=== PATIENT | female | born 1990 | race Caucasian/White ===

== ENCOUNTER 2017-07-11 01:15 | Inpatient (IN) | payer MEDICARE, MEDICAID ==
[~2017-07-11] VITALS: Ht 149.9 cm; Wt 42.2 kg
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
--- NOTE | 2017-07-11 01:30 | NUR ---
LAB TA BEDSIDE
--- NOTE | 2017-07-11 01:42 | NUR ---
XRAY AT BEDSIDE
[2017-07-11 01:47] LABS: BASOPHILS % (AUTO) 0.3 % (0.0-2.0); EOSINOPHILS # (AUTO) 0.2 /CMM (0.0-0.7); HEMATOCRIT 22 % (33-45); HEMOGLOBIN 7.5 g/dL (11.5-14.8); LYMPHOCYTES % (AUTO) 19.7 % (20.0-44.0); MEAN CORPUSCULAR HEMOGLOBIN 31 PG (26.0-33.0); MEAN CORPUSCULAR HGB CONC 34 g/dl (31.0-36.0); MEAN CORPUSCULAR VOLUME 91 fL (82-100); MONOCYTES % (AUTO) 9.7 % (2.0-12.0); NEUTROPHILS # (AUTO) 6.9 /CMM (1.8-8.9); NEUTROPHILS % (AUTO) 68.3 % (43.0-81.0); PLATELET COUNT (AUTO) 453 /CMM (150-450); RDW COEFFICIENT OF VARIATION 16.3 (11.5-15.0); RED BLOOD CELL COUNT(AUTO) 2.44 MIL/uL (4.0-5.2); WHITE BLOOD COUNT (AUTO) 10.1 K/uL (4.3-11.0)
[2017-07-11 01:58] LABS: CALCIUM, SERUM 11.5 mg/dL (8.5-10.1); CARBON DIOXIDE 29 mmol/L (21-32); CHLORIDE 103 mmol/L (98-107); CREATININE 1.4 mg/dL (0.6-1.3); GLUCOSE 108 mg/dL (74-106); SODIUM SERUM 141 mmol/L (136-145); UREA NITROGEN, BLOOD 19 mg/dL (7-18)
[2017-07-11 02:03] LABS: ACETAMINOPHEN 3 ug/ml (10-30); ALANINE AMINOTRANSFERASE 15 U/L (12-78); ALBUMIN 2.5 g/dL (3.4-5.0); ALKALINE PHOSPHATASE 93 U/L (46-116); ASPARTATE AMINOTRANSFERASE 27 U/L (15-37); BILIRUBIN,DIRECT 0.1 mg/dL (0.0-0.2); BILIRUBIN,TOTAL 0.2 mg/dL (0.2-1.0); TOTAL PROTEIN, SERUM 7.9 g/dL (6.4-8.2)
[2017-07-11 02:05] LABS: SALICYLATE 1.4 mg/dL (2.8-20.0)
[2017-07-11 02:06] LABS: APPEARANCE,URINE CLEAR (CLEAR); BILIRUBIN,URINE NEGATIVE (NEGATIVE); BLOOD, URINE NEGATIVE Ery/uL (NEGATIVE); COLOR,URINE YELLOW (YELLOW); KETONES,URINE NEGATIVE (NEGATIVE); LEUKOCYTE ESTERASE ,URINE NEGATIVE (NEGATIVE); NITRITE, URINE NEGATIVE (NEGATIVE); PROTEIN,URINE NEGATIVE (NEGATIVE); UGLUCOSE NEGATIVE (NEGATIVE); UROBILINOGEN,URINE 0.2 EU/dL (0.2)
[2017-07-11 02:06] LABS: ALCOHOL, BLOOD < 3 mg/dL (0-0)
[2017-07-11] MEDS ORDERED: TYL2T PO (02:39)
[2017-07-11] MEDS ORDERED: PROP20TA7 PO (02:39)
[2017-07-11] MEDS ORDERED: HYDR-548 PO (02:39)
[2017-07-11] MEDS ORDERED: POTA10CA43 PO (02:39)
[2017-07-11] MEDS ORDERED: LACT10SO PO (02:39)
[2017-07-11] MEDS ORDERED: VALP250C3 PO (02:39)
[2017-07-11] MEDS ORDERED: TAMO20TA4 PO (02:39)
[2017-07-11] MEDS ORDERED: FERR325T23 PO (02:39)
[2017-07-11] MEDS ORDERED: ONDA4TAB8 PO (02:39)
[2017-07-11] MEDS ORDERED: IV NS 0.9% 1,000 ML BAG IV ONE (03:00)
--- NOTE | 2017-07-11 03:28 | NUR ---
REPORT GIVEN TO IVA
--- NOTE | 2017-07-11 03:37 | NUR ---
RECEIVED NEW ADMISSION FROM ER, ALERT AND ORIENTED X3, ANXIOUS, REPEATEDLY SAYING "I WANT PAIN MEDICATION, I'M IN PAIN.", NO SOB, TOLERATING ROOM AIR, SP02 97%, COMPLAINING OF 10/10 PAIN TO LOWER BACK. HAS HX OF VERTEBRAL WEDGE COMPRESSION. ABDOMEN SOFT AND NON-TENDER, ACTIVE BOWEL SOUNDS, HAS BILATERAL BREAST IMPLANTS, WITH HX OF NEOPLASTIC BREAST CANCER. LEFT ARM PERIPHERAL LINE IS PATENT AND SECURED WITH DRESSING. HAS UNCONTROLLABLE TREMORS WHEN UPSET. TREMORS STOPPED WHEN PATIENT CALMED DOWN, ABLE TO ANSWER QUESTIONS REGARDING HEALTH HISTORY. UNSTEADY GAIT, ABLE TO AMBULATE TO THE TOILET. ORIENTED TO ROOM AND USE OF CALL LIGHT, KEPT COMFORTABLE, PROVIDED WARM BLANKET, CALL LIGHT WITHIN REACH.
--- NOTE | 2017-07-11 03:45 | NUR ---
NOTIFIED DR. HINSON OF ADMISSION, AWAITING ORDERS.
[2017-07-11 03:47] VITALS: BP 108/51
--- NOTE | 2017-07-11 04:00 | NUR ---
RN NOTE; ADMITTED A 26 Y/O, F , A , OX4. ANXIOUS, BREATHING EVENLY. NO SOB., NAD . SKIN WARM AND DRY. AFEBRILE. W/ C/O LOWER BACK PAIN. NEEDS ATTENDED. DR. HINSON MADE AWARE. CALL LIGHT WITHIN REACH . WILL CONT TO MONITOR AND WILL F/U W/ ORDERS.
[2017-07-11] MEDS ORDERED: Z GUARD REMEDY 2 OZ OINT TP PRN (06:30)
[2017-07-11] MEDS ORDERED: MAG HYDROX/AL HYDROX/SIMETH 30 ML UDC PO PRN (06:30)
[2017-07-11] MEDS ORDERED: ZOLPIDEM TARTRATE 5 MG TABLET PO PRN (06:30)
[2017-07-11] MEDS ORDERED: ONDANSETRON HCL/PF 4 MG/2 ML VIAL IVP PRN (06:30)
[2017-07-11] MEDS ORDERED: MAGNESIUM HYDROXIDE 30 ML UDC PO PRN (06:30)
--- NOTE | 2017-07-11 06:32 | NUR ---
PT IN BED SLEEPING. AROUSES EASILY. W/ EPISODES OF ANXIETY AND SCREAMING, NO C/O PAIN OR DISCOMFORT AT THIS TIME. NEEDS ATTENDED . BED LOW LOCKED .CALL LIGHT WITHIN REACH,. WILL CONT TO MONITOR AND WILL ENDORSE TO AM SHIFT FOR CLYDE.
--- NOTE | 2017-07-11 07:47 | NUR ---
RN INITIAL NOTES RECEIVED PT LAYING IN BED WITH HOB ELEVATED. PT IS AWAKE AND RESPONSIVE. RESPIRATIONS ARE EVEN AND UNLABORED, NOT IN ANY ACUTE DISTRESS NOTED. PERIPHERAL IV TO LEFT ARM, PATENT. DRESSING KEPT CLEAN AND DRY. PT ABLE TO MOVE AROUND IN BED WITH SUPERVISION. WILL CONTINUE TO MONITOR THROUGHOUT SHIFT AND RENDER NEEDS.
[2017-07-11 08:00] VITALS: BP 126/81
[2017-07-11] MEDS: PANTOPRAZOLE 40 MG TABLET.DR PO SCH (08:38)
[2017-07-11] MEDS: HYDROCODONE/APAP 5/325MG 1 EACH TABLET PO PRN ×3 (08:38→18:19)
[2017-07-11 09:35] VITALS: BP 126/81
--- NOTE | 2017-07-11 10:16 | NUR ---
RN NOTES PT TRANSFERRED FROM OR TO [facility]. ALL BELONGINGS WERE TAKEN TO PT'S ROOM IN 104, NURSE DENZEL MADE AWARE. Addendum: 07/11/17 at 1018 by BOB GARCIA RN INCORRECT CHART. THIS PT IS IN STABLE CONDITION AND CURRENTLY IN RM 201 MED/SURG 2
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
[2017-07-11] MEDS ORDERED: clonazePAM 1 MG TABLET PO PRN (12:00)
[2017-07-11] MEDS: DIVALPROEX SODIUM 500 MG TABLET.DR PO SCH ×4 (13:40→20:25)
[2017-07-11] MEDS: OLANZAPINE 5 MG/TAB.RAPDIS PO SCH ×2 (13:41→20:21)
[2017-07-11] MEDS: ACETAMINOPHEN 325 MG TABLET PO PRN (15:52)
[2017-07-11 16:03] VITALS: BP 104/59
--- NOTE | 2017-07-11 18:36 | NUR ---
RN CLOSING NOTES All needs met and rendered. Pt periodically yells for pain. [place] 5/325 and Tylenol 650mg given for pain. all due meds given. Pt seen and examined by Dr. Pittman and reconciled psychotropic medications. Pt is tolerating well with no ASE noted. a/o x3, respirations are even and unlabored, not in any acute distress noted. Reminded pt to use call light when assistance is needed and to not yell. Pt stated "okay i will push the button next time." Pt continues to have episodes of yelling, offered to sit with patient for emotional support and appears to like it. IV to left arm still intact, patent. Dressing kept clean and dry. Will endorse to next shift for continuity of care.
[2017-07-11 20:00] VITALS: BP 102/55
--- NOTE | 2017-07-11 20:01 | NUR ---
RECEIVED PATIENT IN ROOM ASLEEP AT THIS TIME BREATHING EVEN NORMAL VITAL SIGN STABLE ELIZABETH ANY PAIN OR DISCOMFORT AT THIS TIME. WILL CONTINUES TO MONITOR THE PATIENT FOR A SAFETY AND FALL PRECAUTIONS.
[2017-07-11] MEDS: HYDROCODONE/APAP 5/325MG 1 EACH TABLET PO SCH (20:21)
[2017-07-11] MEDS: VALPROIC ACID 250 MG/5 ML UDC PO SCH (21:15)
[2017-07-12] MEDS: LORAZEPAM 1 MG TABLET PO PRN ×2 (03:25→20:50)
[2017-07-12] MEDS: HYDROCODONE/APAP 5/325MG 1 EACH TABLET PO PRN ×3 (03:26→20:58)
[2017-07-12] MEDS: HYDROCODONE/APAP 5/325MG 1 EACH TABLET PO SCH ×3 (06:10→17:34)
[2017-07-12 06:52] LABS: ALBUMIN 2.3 g/dL (3.4-5.0); BILIRUBIN,TOTAL 0.2 mg/dL (0.2-1.0); CALCIUM, SERUM 10.9 mg/dL (8.5-10.1); CREATININE 1.2 mg/dL (0.6-1.3); MAGNESIUM 1.6 mg/dL (1.8-2.4); PHOSPHORUS 4.3 mg/dL (2.5-4.9); POTASSIUM 4.2 mmol/L (3.5-5.1); TOTAL PROTEIN, SERUM 7.8 g/dL (6.4-8.2)
[2017-07-12 06:59] LABS: CREATINE KINASE MB 0.1 ng/mL (0-3.6); THYROID STIMULATING HORMONE 0.805 uIU/mL (0.358-3.74)
--- NOTE | 2017-07-12 07:05 | NUR ---
RN NOTES PT IS RESTING IN BED COMFORTABLY, NO SIGNS OF DISTRESS NOTED. PT ON RA, RESPIRATIONS ARE EVEN AND UNLABORED. IV ON LFA INTACT AND SL. SAFETY MEASURES ARE IN PLACE, CALL LIGHT IS IN REACH. WILL CONTINUE TO MONITOR.
[2017-07-12 07:11] LABS: BASOPHILS % (AUTO) 0.3 % (0.0-2.0); EOSINOPHILS # (AUTO) 0.1 /CMM (0.0-0.7); EOSINOPHILS % (AUTO) 0.5 % (0.0-6.0); HEMATOCRIT 22 % (33-45); HEMOGLOBIN 7.7 g/dL (11.5-14.8); LYMPHOCYTES # (AUTO) 2.6 /CMM (0.8-4.8); LYMPHOCYTES % (AUTO) 22.7 % (20.0-44.0); MEAN CORPUSCULAR HEMOGLOBIN 31 PG (26.0-33.0); MEAN CORPUSCULAR HGB CONC 35 g/dl (31.0-36.0); MEAN CORPUSCULAR VOLUME 90 fL (82-100); MONOCYTES # (AUTO) 1.2 /CMM (0.1-1.30); MONOCYTES % (AUTO) 10.4 % (2.0-12.0); NEUTROPHILS # (AUTO) 7.7 /CMM (1.8-8.9); NEUTROPHILS % (AUTO) 66.1 % (43.0-81.0); PLATELET COUNT (AUTO) 508 /CMM (150-450); RDW COEFFICIENT OF VARIATION 15.6 (11.5-15.0); RED BLOOD CELL COUNT(AUTO) 2.48 MIL/uL (4.0-5.2); WHITE BLOOD COUNT (AUTO) 11.6 K/uL (4.3-11.0)
--- NOTE | 2017-07-12 07:21 | NUR ---
NO CHANGES FROM BASE LINE PATIENT REMAIN STABLE CONDITIONS,PAIN MEDICATIONS ADMINISTERED ORDER FOR SEVER PAIN WE WILL ENDORSE TO THE INCOMING NURSE.
[2017-07-12 08:00] VITALS: BP 84/47
[2017-07-12] MEDS: POTASSIUM CHLORIDE 10 MEQ TABLET.SA PO SCH (08:10)
[2017-07-12] MEDS: OLANZAPINE 5 MG/TAB.RAPDIS PO SCH ×2 (08:10→20:50)
[2017-07-12] MEDS: PANTOPRAZOLE 40 MG TABLET.DR PO SCH (08:10)
[2017-07-12] MEDS: LACTULOSE 10 G/15 ML UDC (PYXIS) PO SCH ×2 (08:10→17:34)
[2017-07-12] MEDS: PROPRANOLOL HCL 10 MG TABLET PO SCH ×3 (08:11→17:33)
[2017-07-12] MEDS: TAMOXIFEN CITRATE 10 MG TABLET PO SCH (08:11)
[2017-07-12] MEDS: FERROUS SULFATE (325 MG) 325 MG/TAB TABLET PO SCH ×2 (08:11→17:33)
[2017-07-12] MEDS: Magnesium 1GM/D5W 100ML PREMIX 100 ML IV SCH ×2 (12:04→13:32)
[2017-07-12] MEDS ORDERED: IV NS 0.9% 1,000 ML IV STA (15:32)
[2017-07-12 16:00] VITALS: BP_SYST 76; BP_SYST 95; BP_DIAS 49; BP_DIAS 69
[2017-07-12] MEDS ORDERED: IV NS 0.9% 250 ML IV ONE (17:18)
[2017-07-12] MEDS ORDERED: IOHEXOL-300 100 ML VIAL IV ONE (17:18)
--- NOTE | 2017-07-12 17:32 | NUR ---
PT REFUSING SCANS.
[2017-07-12] MEDS: DIVALPROEX SODIUM 500 MG TABLET.DR PO SCH (17:33)
--- NOTE | 2017-07-12 18:30 | NUR ---
RN NOTES PT IS RESTING COMFORTABLY IN BED, NO SIGNS OF DISTRESS OR PAIN. ALL MEDS WERE GIVEN ORDERED AND PT NEEDS MET. IV ON LFA INTACT AND RUNNING NS. PT ON RA, RESPIRATIONS ARE EVEN AND UNLABORED. SAFETY MEASURES ARE IN PLACE, CALL LIGHT IS IN REACH. WILL ENDORSE TO AUTOMATIC BUFFING WHEEL FORMER RN FOR CONTINUITY OF CARE.
--- NOTE | 2017-07-12 18:50 | NUR ---
RN NOTES PT HAD CONCERNS ABOUT BLOOD TRANSFUSION, CONSENT HAS NOT BEEN SIGNED. DR. SANCHEZ AWARE. MOTHER, ROMARIO REQUESTED TO SPEAK WITH DOCTOR BEFORE BLOOD TRANSFUSION. PHONE NUMBER . WILL FOLLOW UP TOMORROW.
--- NOTE | 2017-07-12 19:20 | NUR ---
RN NOTES DR. SANCHEZ MADE AWARE OF PT NOT SIGNING BLOOD TRANSFUSION CONSENT TODAY. PT IS STILL TACHYCARDIC AND HYPOTENSIVE. DR SAID IT WAS OKAY FOR NOW TO WAIT FOR TOMORROW FOR BLOOD TRANSFUSION.
[2017-07-12] MEDS: VALPROIC ACID 250 MG/5 ML UDC PO SCH (20:50)
[2017-07-13] MEDS: HYDROCODONE/APAP 5/325MG 1 EACH TABLET PO PRN (02:42)
[2017-07-13] MEDS: HYDROCODONE/APAP 5/325MG 1 EACH TABLET PO SCH ×4 (05:39→18:00)
[2017-07-13 06:56] LABS: CALCIUM, SERUM 10.5 mg/dL (8.5-10.1); CREATININE 1.2 mg/dL (0.6-1.3); POTASSIUM 4.3 mmol/L (3.5-5.1)
--- NOTE | 2017-07-13 07:05 | NUR ---
RN NOTES PT IS SLEEPING IN BED, NO SIGNS OF DISTRESS NOTED. ON RA, RESPIRATIONS ARE EVEN AND UNLABORED. IV ON LFA SALINE LOCKED. SAFETY MEASURES ARE IN PLACE, CALL LIGHT IS IN REACH. WILL CONTINUE TO MONITOR.
[2017-07-13] MEDS: PANTOPRAZOLE 40 MG TABLET.DR PO SCH (07:30)
[2017-07-13 08:00] VITALS: BP 99/62
[2017-07-13] MEDS ORDERED: IOHEXOL-300 100 ML VIAL IV ONE ×2 (08:54→09:50)
[2017-07-13] MEDS ORDERED: IV NS 0.9% 250 ML IV ONE (08:55)
[2017-07-13] MEDS ORDERED: CT SWABBABLE VALVE TRANS SET 1 EA INFUS.SET MC ONE (08:55)
[2017-07-13] MEDS: DIVALPROEX SODIUM 500 MG TABLET.DR PO SCH ×3 (09:00→16:24)
[2017-07-13] MEDS: PROPRANOLOL HCL 10 MG TABLET PO SCH ×3 (09:00→16:25)
[2017-07-13] MEDS: LACTULOSE 10 G/15 ML UDC (PYXIS) PO SCH ×2 (09:00→16:24)
[2017-07-13] MEDS: OLANZAPINE 5 MG/TAB.RAPDIS PO SCH ×2 (09:00→21:10)
[2017-07-13] MEDS ORDERED: METOPROLOL TARTRATE 25 MG TABLET PO SCH (09:00)
--- NOTE | 2017-07-13 10:24 | NUR ---
RT NOTE: PATIENT NOT AVAILABLE TO DO EKG WITH NURSE(LETICIA) AT BEDSIDE. NURSE STATES SHE WILL CALL RT DEPARTMENT WHEN AVAILABLE.
[2017-07-13] MEDS: POTASSIUM CHLORIDE 10 MEQ TABLET.SA PO SCH (10:56)
[2017-07-13] MEDS: FERROUS SULFATE (325 MG) 325 MG/TAB TABLET PO SCH ×2 (10:57→16:25)
[2017-07-13] MEDS: clonazePAM 1 MG TABLET PO SCH ×2 (10:58→16:25)
[2017-07-13 11:00] VITALS: BP_SYST 112; BP_SYST 118; BP_SYST 73; BP_DIAS 42; BP_DIAS 62; BP_DIAS 75
[2017-07-13] MEDS: TAMOXIFEN CITRATE 10 MG TABLET PO SCH (11:02)
[2017-07-13 11:42] LABS: BASOPHILS % (AUTO) 0.3 % (0.0-2.0); EOSINOPHILS # (AUTO) 0.1 /CMM (0.0-0.7); EOSINOPHILS % (AUTO) 0.6 % (0.0-6.0); HEMATOCRIT 22 % (33-45); HEMOGLOBIN 7.1 g/dL (11.5-14.8); LYMPHOCYTES # (AUTO) 2.5 /CMM (0.8-4.8); LYMPHOCYTES % (AUTO) 23.4 % (20.0-44.0); MEAN CORPUSCULAR HEMOGLOBIN 30 PG (26.0-33.0); MEAN CORPUSCULAR HGB CONC 32 g/dl (31.0-36.0); MEAN CORPUSCULAR VOLUME 93 fL (82-100); MONOCYTES % (AUTO) 8.9 % (2.0-12.0); NEUTROPHILS # (AUTO) 7.1 /CMM (1.8-8.9); NEUTROPHILS % (AUTO) 66.8 % (43.0-81.0); PLATELET COUNT (AUTO) 409 /CMM (150-450); RDW COEFFICIENT OF VARIATION 16.6 (11.5-15.0); RED BLOOD CELL COUNT(AUTO) 2.35 MIL/uL (4.0-5.2); WHITE BLOOD COUNT (AUTO) 10.7 K/uL (4.3-11.0)
[2017-07-13] MEDS ORDERED: IV NS 0.9% 1,000 ML IV PRN ×2 (12:00→14:30)
[2017-07-13] MEDS ORDERED: FEE PK DOSING 1 MIN EA MC ONE (12:38)
[2017-07-13] MEDS: LORAZEPAM 1 MG TABLET PO PRN (12:40)
[2017-07-13] MEDS: VANCOMYCIN 1 GM in IV D5W 250 ML IV SCH (14:22)
--- NOTE | 2017-07-13 15:00 | NUR ---
RN NOTES SPOKE WITH DR. VELASCO ABOUT TRANSFERRING PT TO TELEMETRY FOR HEART MONITORING DUE TO TACHYCARDIA AND HYPOTENSIVE STATE. WILL FOLLOW UP WITH RN TRACTOR MECHANIC FOR ROOM.
[2017-07-13] MEDS: PIPERACILLIN /TAZOBACTAM 3.375 G in IV D5W 50 ML IV SCH ×2 (15:30→19:50)
[2017-07-13 16:00] VITALS: BP 93/56
[2017-07-13] MEDS: LACTOBACILLUS RHAMNOSUS GG 1 EACH CAP.SPRINK PO SCH (16:25)
--- NOTE | 2017-07-13 16:50 | NUR ---
RN NOTES PT TRANSFERRED TO TELEMETRY FLOOR. REPORT GIVEN TO NURSE GUTIERRES FOR CONTINUITY OF CARE.
--- NOTE | 2017-07-13 17:15 | NUR ---
tele production planning manager: notes received pt from med surg 2 via w/c accompanied by nurse. pt transferred safely to bed. pt doesn't want to converse, stated, "i want to rest and sleep please." pt refused to be assessed at this time. oriented to room and surroundings. call light within reach. place pt on tele monitor=st 127. instructed to call for assistance. will continue to monitor.
--- NOTE | 2017-07-13 18:05 | NUR ---
tele certified scrum master: notes erlinda cruz (mother) on the phone and informed her that there is a standing order for 1 unit of prbc and ask her if she has decided on transfusing the pt with 1 unit of blood, stated, "yes, if she needs it, go ahead." another nurse on the line to verify her consenting over the phone re: blood transfusion, stated, "yes, go ahead." paged dr. parisi notified to verify his standing order, left message thru exchange.
--- NOTE | 2017-07-13 18:14 | NUR ---
tele hospital unit clerk: notes dr. parisi called back and verify if he wants to transfuse pt with 1 unit of prbc, informed md that mother already given consent over the phone with order to transfuse pt with 1 unit of prbc. order read back and carried out and acknowledged.
--- NOTE | 2017-07-13 18:20 | NUR ---
tele vc++ developer: notes pt remains hs=[id number]. pt made aware re: blood transfusion order and pt agreed. also informed her that her mother given consent for blood transfusion. pt is due for [employer], but pt refused when offered, stated, "no, no, i don't need it right now." instructed to call for assistance. will continue to monitor.
--- NOTE | 2017-07-13 19:00 | NUR ---
tele leasing manager: notes pt refused dinner. pt resting comfortable in bed with no distress noted. needs attended. report given to justine (pam) for continuity of care.
--- NOTE | 2017-07-13 19:40 | NUR ---
CASING IN LINE FEEDER INITIAL NOTES PT IS IN BED RESTING, A/O X 2 DELAYED BUT ABLE TO MAKE NEEDS KNOWN. NO SIGNS OF SOB OR DISTRESS, BREATHING EVENLY AND UNLABORED ON 2L NC. PT IS DISTANT STATING THAT SHE DOESN'T WANT TO BE BOTHERED. BLOOD TO BE TRANSFUSED. DENIES PAIN AT THIS TIME. BED IS IN LOW AND LOCKED POSITION, CALL LIGHT WITHIN REACH. WILL CONTINUE TO MONITOR PT
[2017-07-13 20:00] VITALS: BP 90/39
[2017-07-13] MEDS: VALPROIC ACID 250 MG/5 ML UDC PO SCH (21:10)
[2017-07-13] MEDS: ACETAMINOPHEN 325 MG TABLET PO PRN (21:10)
[2017-07-13 23:49] VITALS: BP 85/47
[2017-07-14] VITALS (10 sets, daily range): BP systolic 78–105; BP diastolic 50–72
[2017-07-14] MEDS: HYDROCODONE/APAP 5/325MG 1 EACH TABLET PO SCH ×6 (00:04→23:59)
[2017-07-14] MEDS: PIPERACILLIN /TAZOBACTAM 3.375 G in IV D5W 50 ML IV SCH ×4 (03:06→20:18)
[2017-07-14] MEDS: VANCOMYCIN 1 GM in IV D5W 250 ML IV SCH ×2 (03:54→13:24)
--- NOTE | 2017-07-14 07:35 | NUR ---
ESTERS AND EMULS[employer]IERS SUPERVISOR CLOSING NOTES PT IS IN BED AWAKE AND ALERT. BREATHING EVENLY AND UNLABORED ON 2L NC. BLOOD TRANSFUSION GIVEN, NO ADVERSE EFFECTS NOTED. ON TELE MONITOR PT IS ST 107. ALL NEEDS WERE ANTICIPATED AND MET. BED IS IN LOW AND LOCKED POSITION, CALL LIGHT WITHIN REACH. WILL ENDORSE TO DAYSHIFT
--- NOTE | 2017-07-14 07:45 | NUR ---
RN OPENING NOTES RECEIVED PATIENT IN STABLE CONDITION. COMPLAINING OF SEVERE ABDOMINAL PAIN. DENIES SOB. DENIES CP. AOX3. RESPIRATIONS EVEN AND UNLABORED. NO ACUTE DISTRESS. PATIENT REFUSING OXYGEN. SATURATING ADEQUATELY ON RA. IV ACCESS ON THE LEFT FA 20 G PATENT AND INTACT WITH NS RUNNING AT 100ML/HR. PATIENT RECOGNIZED TO HAVE SOME BEHAVIORAL ISSUES. BED LOCKED IN THE LOWEST POSITION WITH SIDE RAILS UP X2. CALL LIGHT WITHIN REACH. WILL CONTINUE TO MONITOR, ASSESS AND EDUCATE PATIENT THROUGHOUT SHIFT.
[2017-07-14 07:52] LABS: BASOPHILS % (AUTO) 0.3 % (0.0-2.0); EOSINOPHILS # (AUTO) 0.1 /CMM (0.0-0.7); EOSINOPHILS % (AUTO) 0.9 % (0.0-6.0); HEMATOCRIT 27 % (33-45); LYMPHOCYTES # (AUTO) 1.7 /CMM (0.8-4.8); LYMPHOCYTES % (AUTO) 14.7 % (20.0-44.0); MEAN CORPUSCULAR HEMOGLOBIN 28 PG (26.0-33.0); MEAN CORPUSCULAR HGB CONC 34 g/dl (31.0-36.0); MEAN CORPUSCULAR VOLUME 84 fL (82-100); MONOCYTES # (AUTO) 0.9 /CMM (0.1-1.30); MONOCYTES % (AUTO) 7.8 % (2.0-12.0); NEUTROPHILS # (AUTO) 8.9 /CMM (1.8-8.9); NEUTROPHILS % (AUTO) 76.3 % (43.0-81.0); PLATELET COUNT (AUTO) 429 /CMM (150-450); RDW COEFFICIENT OF VARIATION 25.3 (11.5-15.0); WHITE BLOOD COUNT (AUTO) 11.6 K/uL (4.3-11.0)
[2017-07-14 08:01] LABS: CALCIUM, SERUM 10.6 mg/dL (8.5-10.1); CREATININE 1.2 mg/dL (0.6-1.3); MAGNESIUM 1.8 mg/dL (1.8-2.4); PHOSPHORUS 6.4 mg/dL (2.5-4.9); POTASSIUM 3.9 mmol/L (3.5-5.1)
[2017-07-14] MEDS: DIVALPROEX SODIUM 500 MG TABLET.DR PO SCH ×3 (08:37→18:41)
[2017-07-14] MEDS: LACTULOSE 10 G/15 ML UDC (PYXIS) PO SCH ×2 (08:37→18:41)
[2017-07-14] MEDS: LACTOBACILLUS RHAMNOSUS GG 1 EACH CAP.SPRINK PO SCH ×2 (08:37→18:41)
[2017-07-14] MEDS: FERROUS SULFATE (325 MG) 325 MG/TAB TABLET PO SCH ×2 (08:38→18:41)
[2017-07-14] MEDS: OLANZAPINE 5 MG/TAB.RAPDIS PO SCH ×2 (08:38→20:20)
[2017-07-14] MEDS: PROPRANOLOL HCL 10 MG TABLET PO SCH ×4 (08:38→18:45)
[2017-07-14] MEDS: POTASSIUM CHLORIDE 10 MEQ TABLET.SA PO SCH (08:38)
[2017-07-14] MEDS: clonazePAM 1 MG TABLET PO SCH ×2 (08:38→18:41)
[2017-07-14] MEDS: PANTOPRAZOLE 40 MG TABLET.DR PO SCH (08:38)
[2017-07-14] MEDS: HYDROCODONE/APAP 5/325MG 1 EACH TABLET PO PRN (08:43)
--- NOTE | 2017-07-14 09:15 | NUR ---
RN NON ADMIN NOTES PATIENT BP WNL 106/59. PROPRANOLOL HELD. PATEINT REQUESTING PAIN MEDICATION.
[2017-07-14] MEDS: TAMOXIFEN CITRATE 10 MG TABLET PO SCH (11:30)
--- NOTE | 2017-07-14 12:00 | NUR ---
RN NOTES DISCUSSED WITH RADIOLOGY PATIENTS NEED FOR MRI. 1 OF 2 MRIS COMPLETED. PATEINT COMPLAINING OF CLAUSTROPHOBIA. CT ANGIO TO BE COMPLETED. CONSENT SIGNED.
--- NOTE | 2017-07-14 13:08 | NUR ---
RN NON ADMIN NOTES PATIENT VERY HYPOTENSIVE. PAIN MEDICATION AND BP MEDS HELD.
--- NOTE | 2017-07-14 14:15 | NUR ---
RN NOTES PATIENT BECOMING COMBATIVE AND AGGRESSIVE WITH STAFF. PATIENT CALMED DOWN AND ASKED TO COOPERATE. AGGRESSIVE BEHAVIOR SUBSIDED. CHARGE NURSE AWARE.
[2017-07-14] MEDS: LORAZEPAM 1 MG TABLET PO PRN (14:50)
[2017-07-14] MEDS ORDERED: IOHEXOL-300 100 ML VIAL IV ONE (16:22)
[2017-07-14] MEDS ORDERED: IV NS 0.9% 250 ML IV ONE (16:22)
[2017-07-14] MEDS: METRONIDAZOLE 500MG/ NS 100ML 500 MG in PREMIX 1 EA IV SCH ×2 (18:31→23:43)
--- NOTE | 2017-07-14 19:45 | NUR ---
RN CLOSING NOTES PATIENT IN STABLE CONDITION. COMPLAINING OF SEVERE ABDOMINAL PAIN. DENIES SOB. DENIES CP. AOX3. RESPIRATIONS EVEN AND UNLABORED. SATURATING ADEQUATELY ON RA. IV ACCESS PATENT AND INTACT. BED LOCKED IN THE LOWEST POSITION WITH SIDE RAILS UP X2. CALL LIGHT WITHIN REACH. ALL NEEDS MET. ALL MEDS GIVEN APPROPRIATE. WILL ENDORSE TO NIGHT RN FOR CLYDE.
--- NOTE | 2017-07-14 20:00 | NUR ---
ms/rn opening notes PATIENTIN BED, ABLE TO GO TO BATHROOM BUT WITH ASSISTANCE, REQUIRE MONITORING NOT TO PULL OUT IV FOR SAFETY. PREFER TO KEEP ROOM WARM, REQUIRE ORIENTATION , ABLR TO TOLERATE MEDICATION, CALL LIGHTS WITHIN REACH, PROVIDE FLUIDS.IV MONITORING, ANTIBBIOTIC TO GIVE WILL MONITOR ADVERSE EFFECT.
[2017-07-14] MEDS: VALPROIC ACID 250 MG/5 ML UDC PO SCH (21:31)
--- NOTE | 2017-07-14 22:19 | NUR ---
MS/RN NOTES PATIENT UNAROUSABLE, RESPIRATION SHALLOW AND ON 10 LITER OXYGEN ON FACE MASK, MONITORING FOR ANY CHANGES. Addendum: 07/15/17 at 0528 by ALEXANDRA ESCOBAR RN pls disregard previous note not for this patient
[2017-07-15] MEDS: VANCOMYCIN 1 GM in IV D5W 250 ML IV SCH ×2 (00:41→13:14)
[2017-07-15] MEDS: PIPERACILLIN /TAZOBACTAM 3.375 G in IV D5W 50 ML IV SCH ×4 (02:33→20:05)
--- NOTE | 2017-07-15 05:29 | NUR ---
ms/rn notes observed loose stool w/ no foul odor
[2017-07-15] MEDS: HYDROCODONE/APAP 5/325MG 1 EACH TABLET PO SCH ×3 (05:52→18:00)
--- NOTE | 2017-07-15 05:52 | NUR ---
ms/rn notes NORCO 5-325 MG PO SCHEDULED MEDICATION GIVEN.
--- NOTE | 2017-07-15 05:57 | NUR ---
MS/RN NOTES PATIETN REFUSE TO HAVE SWAB DONE FOR INFLUENZA AT THIS TIME. WILL ENDORSE TO AM RN .
--- NOTE | 2017-07-15 06:19 | NUR ---
MS/RN NOTES PATIENT ABLE TO SLEEP DURING THE NIGHT, PAIN MEDICATION EFFECTIVE, COOPERATIVE USUALLY, WILL ASK FOR COOPERATION TO SWAB HER NOSE FOR INFLUENZA ANTIGEN, ASSISTED/SUPERVISED, ABLE TO HAVE BM . OBSERVE ABLE TO HAVE SNACKS . PROVIDE WARMTH WITH WARM BLANKET, WILL CONTINUE TO MONITOR AND MONITOR ANY CHANGES,WILL ENDORSE TO AM RN FOR CLYDE. CALL LIGHTS WITHIN REACH, ABLE TO ADMINISTER IV ATB W/ NO S/S OD ADVERSE REACTION.
--- NOTE | 2017-07-15 06:53 | NUR ---
MS/RN NOTES COLLECTED INFLUENZA NASAL ASPIRATE, PATIENT TOLERATED PROCEDURE.
[2017-07-15 08:00] VITALS: BP 81/45
[2017-07-15] MEDS: clonazePAM 1 MG TABLET PO SCH ×2 (08:56→16:29)
[2017-07-15] MEDS: LACTULOSE 10 G/15 ML UDC (PYXIS) PO SCH ×2 (08:56→16:28)
[2017-07-15] MEDS: DIVALPROEX SODIUM 500 MG TABLET.DR PO SCH ×3 (08:56→16:29)
[2017-07-15] MEDS: FERROUS SULFATE (325 MG) 325 MG/TAB TABLET PO SCH ×2 (08:57→16:31)
[2017-07-15] MEDS: METRONIDAZOLE 500MG/ NS 100ML 500 MG in PREMIX 1 EA IV SCH ×2 (08:57→16:25)
[2017-07-15] MEDS: OLANZAPINE 5 MG/TAB.RAPDIS PO SCH ×2 (08:57→20:46)
[2017-07-15] MEDS: PANTOPRAZOLE 40 MG TABLET.DR PO SCH (08:57)
[2017-07-15] MEDS: POTASSIUM CHLORIDE 10 MEQ TABLET.SA PO SCH (08:57)
[2017-07-15] MEDS: PROPRANOLOL HCL 10 MG TABLET PO SCH ×3 (08:58→16:28)
[2017-07-15] MEDS: LACTOBACILLUS RHAMNOSUS GG 1 EACH CAP.SPRINK PO SCH ×2 (09:03→16:29)
[2017-07-15] MEDS: TAMOXIFEN CITRATE 10 MG TABLET PO SCH (09:04)
[2017-07-15 12:23] LABS: CALCIUM, SERUM 9.7 mg/dL (8.5-10.1); CREATININE 1.2 mg/dL (0.6-1.3)
[2017-07-15 14:07] VITALS: BP 109/55
[2017-07-15 14:09] VITALS: BP_SYST 119; BP_SYST 144; BP_DIAS 68; BP_DIAS 79
[2017-07-15] MEDS ORDERED: IV NS 0.9% 1,000 ML IV PRN (14:30)
--- NOTE | 2017-07-15 15:00 | NUR ---
RN NOTES ORDERS GIVEN FOR TO BOLUS PATIENT. STOOL COLLECTED FOR CDIFF. WILL CARRY OUT ORDERS
[2017-07-15 15:43] LABS: BASOPHILS % (AUTO) 0.4 % (0.0-2.0); EOSINOPHILS # (AUTO) 0.1 /CMM (0.0-0.7); EOSINOPHILS % (AUTO) 1.5 % (0.0-6.0); HEMATOCRIT 25 % (33-45); HEMOGLOBIN 8.3 g/dL (11.5-14.8); LYMPHOCYTES % (AUTO) 22.3 % (20.0-44.0); MEAN CORPUSCULAR HEMOGLOBIN 28 PG (26.0-33.0); MEAN CORPUSCULAR HGB CONC 34 g/dl (31.0-36.0); MEAN CORPUSCULAR VOLUME 84 fL (82-100); MONOCYTES % (AUTO) 10.8 % (2.0-12.0); NEUTROPHILS # (AUTO) 5.8 /CMM (1.8-8.9); PLATELET COUNT (AUTO) 429 /CMM (150-450); RED BLOOD CELL COUNT(AUTO) 2.94 MIL/uL (4.0-5.2); WHITE BLOOD COUNT (AUTO) 8.9 K/uL (4.3-11.0)
[2017-07-15 16:00] VITALS: BP 96/62
--- NOTE | 2017-07-15 18:08 | NUR ---
RN NON ADMIN NOTES PATIENT MORNING BP MEDS HELD. PATIENT HYPOTENSIVE. PAIN MEDS HELD DUE TO HYPOTENSION.
--- NOTE | 2017-07-15 18:50 | NUR ---
RN NOTES PATIENT K+ 3.0. REPORTED TO MD. ORDERS FOR K DUR 80 MEQ PO ONE TIME. WILL CARRY OUT ORDERS.
--- NOTE | 2017-07-15 19:45 | NUR ---
MS/RN NOTES KDUR 10MEQ WAS PULLED IN THE PYXIS. WAS WASTED , OPENED WRAP, UNABLE TO RETURN. CHARGE NURSE INFORM.
[2017-07-15] MEDS: HYDROCODONE/APAP 5/325MG 1 EACH TABLET PO PRN (19:47)
[2017-07-15] MEDS: POTASSIUM CHLORIDE 20 MEQ TAB.PRT.SR PO ONE (19:50)
--- NOTE | 2017-07-15 19:59 | NUR ---
MS/RN OPENING NOTES PATIENT IN BED COMPLAINING OF ABDOMINAL PAIN, CHECK B/P AND ADMINISTER NEEDED PAIN MEDICATION NORCO 5-325MG PO W/ APPLE SAUCE, POTASSIUM TO REPLACE AND DISSOLVE IN ORANGE JUICE , WILL MONITOR PAIN AND PATIENT CONDITION
[2017-07-15 20:00] VITALS: BP 115/68
[2017-07-15] MEDS: VALPROIC ACID 250 MG/5 ML UDC PO SCH (22:22)
--- NOTE | 2017-07-15 22:29 | NUR ---
MS/RN NOTES LEFT FOREARM REPORTED SOME PAIN,INFORMED PATIENT NEED TO REINSERT A NEW LINE, PATIENT, WILL RESTART WHEN MORE COOPERATIVE AND INFORM MD.
--- NOTE | 2017-07-15 23:56 | NUR ---
MS/RN NOTES MD WAS INFORMED REGARDING IV SITE INFILTRATED AND PATIENT REFUSES TO BEING INSERTED PERIPHERAL, MD INSTRUCTED TO EXPLAIN TO PATIENT THE IMPORTANCE AND THAT MID LINE WILL BE ORDERED. PATIENT AGREED TO HAVE MID LINE. MD ORDER CARRIED OUT.
[2017-07-16] MEDS: HYDROCODONE/APAP 5/325MG 1 EACH TABLET PO SCH ×3 (00:33→12:00)
[2017-07-16] MEDS: METRONIDAZOLE 500MG/ NS 100ML 500 MG in PREMIX 1 EA IV SCH ×2 (00:52→08:05)
[2017-07-16] MEDS: PIPERACILLIN /TAZOBACTAM 3.375 G in IV D5W 50 ML IV SCH ×2 (02:44→10:03)
[2017-07-16] MEDS ORDERED: POTASSIUM CHLORIDE 20 MEQ TAB.PRT.SR PO ONE (04:31)
[2017-07-16] MEDS: POTASSIUM CHLORIDE 20 MEQ TAB.PRT.SR PO ONE (04:35)
--- NOTE | 2017-07-16 06:47 | NUR ---
MS/RN NOTES 320-1 PATIENT IN BED,PAIN MEDICATION ADMINISTERED, ALERT, ORIENTED, POTASSIUM KDUR 80MEQ PO GIVEN, DISSOLVE WITH ORANGE JUICE, , PATEITN TOLERATE MEDICATION. OBSERVED GUARDING WITH BEHAVIOR BUT ABLE TO COOPEARTE AND ASSIST WITH NEEDS, MID LINE PLACED ON RIGHT UPPER ARM. WILL CONTINUE TO MONITOR. WILL ENDORSE TO AM RN FOR CLYDE.
--- NOTE | 2017-07-16 07:10 | NUR ---
RN NOTES PATIENT ALERT AND ORIENTED, DENIES PAIN. RESTLESS D/T PATIENT REFUSING TO GET BLOOD DRAW, BUT EXPLAINED BLOOD DRAW WILL BE TAKEN FROM MIDLINE, THEN PATIENT AGREED. KEPT PATIENT COMFORTABLE. NEEDS ANTICIPATED. HOB ELEVATED, TURNED AND REPOSITIONED. CALL LIGHT WITHIN REACH, SAFETY MEASURES IN PLACED, WILL CONTINUE TO MONITOR.
[2017-07-16 08:00] VITALS: BP 85/41
[2017-07-16 08:22] LABS: BASOPHILS # (AUTO) 0.1 /CMM (0.0-0.2); BASOPHILS % (AUTO) 0.7 % (0.0-2.0); EOSINOPHILS # (AUTO) 0.1 /CMM (0.0-0.7); EOSINOPHILS % (AUTO) 1.6 % (0.0-6.0); HEMATOCRIT 29 % (33-45); LYMPHOCYTES # (AUTO) 2.6 /CMM (0.8-4.8); LYMPHOCYTES % (AUTO) 29.2 % (20.0-44.0); MEAN CORPUSCULAR HEMOGLOBIN 27 PG (26.0-33.0); MEAN CORPUSCULAR HGB CONC 32 g/dl (31.0-36.0); MEAN CORPUSCULAR VOLUME 86 fL (82-100); MONOCYTES # (AUTO) 0.7 /CMM (0.1-1.30); MONOCYTES % (AUTO) 8.1 % (2.0-12.0); NEUTROPHILS # (AUTO) 5.3 /CMM (1.8-8.9); NEUTROPHILS % (AUTO) 60.4 % (43.0-81.0); PLATELET COUNT (AUTO) 221 /CMM (150-450); RDW COEFFICIENT OF VARIATION 26.5 (11.5-15.0); RED BLOOD CELL COUNT(AUTO) 3.31 MIL/uL (4.0-5.2); WHITE BLOOD COUNT (AUTO) 8.8 K/uL (4.3-11.0)
[2017-07-16] MEDS: PROPRANOLOL HCL 10 MG TABLET PO SCH ×2 (09:00→13:00)
[2017-07-16] MEDS: PANTOPRAZOLE 40 MG TABLET.DR PO SCH (09:39)
[2017-07-16] MEDS: OLANZAPINE 5 MG/TAB.RAPDIS PO SCH (09:39)
[2017-07-16] MEDS: DIVALPROEX SODIUM 500 MG TABLET.DR PO SCH ×3 (09:39→16:05)
[2017-07-16] MEDS: FERROUS SULFATE (325 MG) 325 MG/TAB TABLET PO SCH ×2 (09:39→16:05)
[2017-07-16] MEDS: LACTULOSE 10 G/15 ML UDC (PYXIS) PO SCH ×2 (09:39→16:05)
[2017-07-16] MEDS: LACTOBACILLUS RHAMNOSUS GG 1 EACH CAP.SPRINK PO SCH ×2 (09:39→16:05)
[2017-07-16] MEDS: clonazePAM 1 MG TABLET PO SCH (09:39)
[2017-07-16] MEDS: TAMOXIFEN CITRATE 10 MG TABLET PO SCH (09:40)
[2017-07-16 10:17] LABS: CALCIUM, SERUM 10.1 mg/dL (8.5-10.1); CREATININE 1.2 mg/dL (0.6-1.3); MAGNESIUM 1.7 mg/dL (1.8-2.4); PHOSPHORUS 4.6 mg/dL (2.5-4.9); POTASSIUM 4.1 mmol/L (3.5-5.1)
[2017-07-16] MEDS: POTASSIUM CHLORIDE 10 MEQ TABLET.SA PO SCH (10:29)
[2017-07-16] MEDS ORDERED: VANCOMYCIN 1 GM in IV D5W 250 ML IV SCH (12:00)
[2017-07-16 13:00] VITALS: BP_SYST 101; BP_SYST 92; BP_SYST 96; BP_DIAS 57; BP_DIAS 61
[2017-07-16] MEDS: Magnesium 1GM/D5W 100ML PREMIX 100 ML IV SCH ×2 (13:08→16:05)
--- NOTE | 2017-07-16 13:16 | NUR ---
RN NOTES PATIENT ALERT AND ORIENTED X3, SEEN BY DR. RANDLE, GAVE INSTRUCTIONS TO GIVE 1L BOLUS IF BP REMAINS LOW. AND TO HOLD NORCO D/T SEDATION. PATIENT'S BP 96/61. ASYMPTOMATIC. NEEDS ATTENDED AND MET, CALL LIGHT WITHIN REACH, WILL CONTINUE TO MONITOR.
[2017-07-16] MEDS: HYDROCODONE/APAP 5/325MG 1 EACH TABLET PO PRN (13:33)
[2017-07-16] MEDS ORDERED: OLAN5TAB6 PO (13:53)
[2017-07-16] MEDS ORDERED: LORA1TAB PO (13:53)
[2017-07-16] MEDS ORDERED: METO100T14 PO (13:53)
[2017-07-16] MEDS: METOPROLOL TARTRATE 50 MG TABLET PO SCH ×2 (15:00→16:05)
[2017-07-16 16:00] VITALS: BP 99/59
--- NOTE | 2017-07-16 16:00 | NUR ---
RN NOTES PAGED DR. BANDA, PATIENT'S BP REMAINS LOW 99/53 BUT HR IS 118. PER MD, GIVE METOPROLOL NOW. PATIENT ALERT AND ORIENTED X3, ASYMPTOMATIC, WITH EPISODE OF CRYING, SCREAMING. LACTULOSE HELD D/T PATIENT C/O DIARRHEA. DIARRHEA WITH NO FOUL ODOR. MD AWARE OF DIARRHEA. WILL CONTINUE TO CLOSELY MONITOR.
[2017-07-16 16:05] VITALS: BP 99/59
--- NOTE | 2017-07-16 17:47 | NUR ---
RN NOTES PATIENT IN BED, HAS EPISODES OF AGITATION, SCREAMING AND YELLING. OFFERED ATIVAN BUT PATIENT REFUSED ANY MEDICATION. REFUSED TO HAVE VS TAKEN. REFUSED ANY CARE. EXPLAINED RISKS AND BENEFITS, PATIENT STILL REFUSED. SAFETY MEASURES IN PLACED. CALL LIGHT WITHIN REACH, WILL CONTINUE TO MONITOR.
--- NOTE | 2017-07-16 19:00 | NUR ---
RN NOTES PATIENT ALERT AND ORIENTED X3, OBSERVED WITH SLIGHTLY AGITATION, DENIES PAIN OR DISCOMFORT AT THIS TIME, PETRA MIDLINE REMOVED PRESSURE APPLIED, PATIENT RECEIVED DISCHARGE INSTRUCTIONS BUT REFUSED TO SIGN PAPERWORKS, PATIENT STATED SHE VERBALIZED UNDERSTANDING. REPORT GIVEN TO AJIT GRIGGS AT [facility]. SKIN ASSESSMENT COMPLETED, DRY AND INTACT. SKIN CARE RENDERED, BELONGINGS RECONCILED AND COMPLETE, PATIENT LEFT VIA GURNEY ACCOMPANIED BY 2 SALES REPRESENTATIVE PRINTING.
== END 2017-07-16 18:50 | DRG 872 ==
LOC: ER 01:19 → MEDSG2 03:18 → MED 07-13 17:11 → TELE 07-13 17:24 → MED 07-14 11:46
PROVIDERS: ADMIT Internal Medicine; ATTEND Internal Medicine
PROC: 30233N1 Transfusion of Nonautologous Red Blood Cells into Peripheral Vein, Percutaneous Approach (ICD-10-PCS; principal; 2017-07-13)
DX: A41.9 Sepsis, unspecified organism (principal); S22.000A Wedge compression fracture of unspecified thoracic vertebra, initial encounter for closed fracture; C79.51 Secondary malignant neoplasm of bone; C78.7 Secondary malignant neoplasm of liver and intrahepatic bile duct; M48.54XA Collapsed vertebra, not elsewhere classified, thoracic region, initial encounter for fracture; F11.20 Opioid dependence, uncomplicated; E86.0 Dehydration; F31.64 Bipolar disorder, current episode mixed, severe, with psychotic features; F20.9 Schizophrenia, unspecified; D64.9 Anemia, unspecified; R65.20 Severe sepsis without septic shock; R13.10 Dysphagia, unspecified; Z90.13 Acquired absence of bilateral breasts and nipples; Z85.3 Personal history of malignant neoplasm of breast; Z79.899 Other long term (current) drug therapy; X58.XXXA Exposure to other specified factors, initial encounter; Y92.10 Unspecified residential institution as the place of occurrence of the external cause; S66.411A Strain of intrinsic muscle, fascia and tendon of right thumb at wrist and hand level, initial encounter; Y04.0XXA Assault by unarmed brawl or fight, initial encounter; Y92.129 Unspecified place in nursing home as the place of occurrence of the external cause; D50.0 Iron deficiency anemia secondary to blood loss (chronic); Z79.810 Long term (current) use of selective estrogen receptor modulators (SERMs); T40.2X5A Adverse effect of other opioids, initial encounter; S43.101A Unspecified dislocation of right acromioclavicular joint, initial encounter; N83.8 Other noninflammatory disorders of ovary, fallopian tube and broad ligament; K59.00 Constipation, unspecified; I10 Essential (primary) hypertension; G40.909 Epilepsy, unspecified, not intractable, without status epilepticus; D63.8 Anemia in other chronic diseases classified elsewhere
CPT/HCPCS: 36415; 71045-TC; 72195-TC; 73030-TC; 73130-TC; 80048-TC; 80053-TC; 80061-TC; 80076-TC; 80202-TC; 80305; 81000-TC; 82553-TC; 82728-TC; 82746; 83540-TC; 83605-TC; 83735-TC; 84100-TC; 84443-TC; 84703-TC; 85025-TC; 86850-TC; 86921-TC; 87040-TC; 87081-TC; 87400; 93307-TC; A4216; A4606; G0480; J2543; J3370; J3475; J3490; J7030; J7050; J7060; P9016-BL; Q9967; Z7610